=== PATIENT | male | born 1990 | race Asian ===

== ENCOUNTER 2020-06-29 22:44 | Emergency (ER) | payer OTHER ==
[~2020-06-29] VITALS: Ht 167.6 cm; Wt 67.1 kg
[2020-06-29 22:49] VITALS: Ht 167.6 cm; Wt 67.1 kg
[2020-06-29 23:42] LABS: microscopic required? NO
[2020-06-29 23:46] LABS: BASOPHIL % 0.5 % (0.2-1.5); PLATELET COUNT 286 x10^3mcL (152-348); RED CELL DISTRIBUTION WIDTH 12.9 % (12.1-16.2)
[2020-06-29 23:46] LABS: urine erythrocyte NEGATIVE (NEGATIVE)
[2020-06-29 23:59] LABS: CALCIUM 9.2 mg/dL (8.5-10.1); CARBON DIOXIDE 28.5 mmol/L (21-32); CHLORIDE SERUM 102 mmol/L (98-107); CREATININE SERUM 0.9 mg/dL (0.7-1.3); GFR1 > 60 mL/min; GLUCOSE SERUM 91 mg/dL (74-106); POTASSIUM SERUM 3.9 mmol/L (3.5-5.1); SODIUM SERUM 140 mmol/L (136-145)
[2020-06-30 00:03] LABS: AMPHETAMINE QUAL UR NONE DETECTED (See below)
[2020-06-30 00:04] LABS: ALBUMIN 4.2 g/dL (3.4-5.0); ALKALINE PHOSPHATASE 87 U/L (46-116); ALT/SGPT 74 U/L (16-63); AST/SGOT 20 U/L (15-37); BILIRUBIN TOTAL 0.4 mg/dL (0.20-1.00); CHOLESTEROL 225 mg/dL (<200); CHOLESTEROL/HDL RATIO 4.8; HDL CHOLESTEROL 47 mg/dL (40-60); LIPASE 131 IU/L (73-393); TOTAL PROTEIN, SERUM 7.8 g/dL (6.4-8.2); TRIGLYCERIDES 294 mg/dL (<150)
[2020-06-30] MEDS ORDERED: PRI20 PO (00:24)
[2020-06-30 00:33] VITALS: BP 117/73
== END 2020-06-30 00:33 | disposition home or self-care (01) ==
LOC: ED 22:44
PROVIDERS: Specialist
DX: R10.31 Right lower quadrant pain (principal); R10.32 Left lower quadrant pain; R10.13 Epigastric pain; F17.200 Nicotine dependence, unspecified, uncomplicated
CPT/HCPCS: G0480